=== PATIENT | female | born 1990 | race American Indian/Alaskan Native ===

== ENCOUNTER 2016-09-18 22:41 | Emergency (ER) | payer SELFPAY ==
[2016-09-18 23:54] LABS: Basophils % (Auto) 0.4 % (0.0-1.8); Eosinophils % (Auto) 1.2 % (0.0-4.3); Hematocrit 38.3 % (30.3-42.9); Mean Corpuscular HGB Conc 34 % (30-34); Mean Corpuscular Hemoglobin 32 pg (28-32); Mean Corpuscular Volume 95 fl (79-97); Platelet Count 269 K/mm3 (140-440); Red Blood Count 4.05 M/mm3 (3.65-5.03); Red Cell Distribution Width 12.8 % (13.2-15.2); White Blood Count 6.5 K/mm3 (4.5-11.0)
[2016-09-19 00:09] LABS: Anion Gap 14 mmol/L; BUN/Creatinine Ratio 16.66; Blood Urea Nitrogen 15 mg/dL (7-17); Carbon Dioxide 28 mmol/L (22-30); Chloride 100.4 mmol/L (98-107); Glucose 89 mg/dL (65-100); Potassium 3.9 mmol/L (3.6-5.0); Sodium 138 mmol/L (137-145)
[2016-09-19 00:15] LABS: Urine Drugs of Abuse Note Disclamer
[2016-09-19 00:26] LABS: Bilirubin,Urine NEG (Negative); Blood,Urine NEG (Negative); Ketones,Urine NEG (Negative); Leukocyte Esterase,Urine NEG (Negative); Mucus,Urine FEW /HPF; Nitrite,Urine NEG (Negative); Protein,Urine <15 mg/dL mg/dL (Negative); Urobilinogen,Urine < 2.0 mg/dL (<2.0)
--- NOTE | 2016-09-19 01:31 | Emergency Department Report ---
HPI - General Chief Complaint: Arrhythmia/Palpitations Time Seen by Provider: 09/19/16 01:07 - HPI HPI: This is a 26-year-old -[place] female presents to the emergency department with complaint of shortness of breath, palpitations and some chest discomfort that began around 8:30 PM this evening. The patient has a history of anxiety and panic attacks and thought she was having another one of those so she took her Atarax but did not relieve her discomfort or symptoms. She denies any history of CA, CVA, PE/DVT. Patient does not have a primary care physician here as she currently is living in [place] but is trying to move down here. She denies any tobacco or illicit drug use or abuse. ED Past Medical Hx - Past Medical History Previous Medical History?: Yes Hx Psychiatric Treatment: Yes (anxeity) - Surgical History Past Surgical History?: No - Social History Smoking Status: Never Smoker Substance Use Type: None - Medications Home Medications: Home Medications Medication Instructions Recorded Confirmed Last Taken Type ALPRAZolam [Xanax TAB] 0.5 mg PO BID PRN #12 tab 09/19/16 Unknown Rx ED Review of Systems ROS: Stated complaint: SOB/RAPID HEARTBEAT Other details as noted in HPI Comment: All other systems reviewed and negative Constitutional: denies: chills, fever Eyes: denies: eye pain, eye discharge, vision change ENT: denies: ear pain, throat pain Respiratory: shortness of breath. denies: cough, wheezing Cardiovascular: chest pain, palpitations Gastrointestinal: denies: abdominal pain, nausea, diarrhea Genitourinary: denies: urgency, dysuria, discharge Musculoskeletal: denies: back pain, joint swelling, arthralgia Skin: denies: rash, lesions Neurological: denies: headache, weakness, paresthesias Physical Exam - Physical Exam Vital Signs: Vital Signs 09/18/16 09/19/16 22:49 01:18 Temperature 98.3 F 98.7 F Pulse Rate 81 80 Respiratory 18 16 Rate Blood Pressure 112/78 Blood Pressure 105/66 [Right] O2 Sat by Pulse 98 98 Oximetry Physical Exam: GENERAL: The patient is well-developed well-nourished. HEENT: Normocephalic. Atraumatic. Extraocular motions are intact. Patient has moist mucous membranes. Pupils equal reactive to light bilaterally. NECK: Supple. Trachea is midline. CHEST/LUNGS: Clear to auscultation. There is no respiratory distress noted. HEART/CARDIOVASCULAR: Regular. There is no tachycardia. There is no gallop rub or murmur. ABDOMEN: Abdomen is soft, nontender. Patient has normal bowel sounds. There is no abdominal distention. SKIN: Skin is warm and dry. NEURO: The patient is awake, alert, and oriented. The patient is cooperative. The patient has no focal neurologic deficits. The patient has normal speech. Cranial nerves II through XII grossly intact. MUSCULOSKELETAL: There is no tenderness or deformity. There is no limitation range of motion. There is no evidence of acute injury. ED Course Vital Signs 09/18/16 09/19/16 22:49 01:18 Temperature 98.3 F 98.7 F Pulse Rate 81 80 Respiratory 18 16 Rate Blood Pressure 112/78 Blood Pressure 105/66 [Right] O2 Sat by Pulse 98 98 Oximetry ED Medical Decision Making - Lab Data Result diagrams: 09/18/16 23:19 09/18/16 23:19 - EKG Data -: EKG Interpreted by Me EKG shows normal: sinus rhythm, axis, intervals, QRS complexes, ST-T waves Rate: normal - EKG Data When compared to previous EKG there are: previous EKG unavailable Interpretation: normal EKG - Radiology Data Radiology results: image reviewed interpreted by me: Chest x-ray did not show any acute process. Heart is normal shape and size. No effusions. No pneumothorax. No signs of pneumonia seen. - Medical Decision Making This is a 26-year-old female presents the emergency department with complaint of chest pain, palpitations and shortness of breath. She herself appears to have a high suspicion that it is anxiety induced. She was examined with physical exam, labs, imaging and EKG. EKG does not show any signs of ST elevation CA, ischemia or significant dysrhythmia. Labs are unremarkable including a negative troponin and a negative D-dimer. Chest x-ray does not show any acute process. Vital signs stable throughout his ED course including being afebrile. She has a OSWALDO score of 0. She is low on the heart score criteria. She was given a dose of Xanax and upon reevaluation she says she is feeling better. It is possible that it is still anxiety related. However the patient will be given a referral for cardiology to follow up regarding the chest discomfort and palpitations. She'll be given a small amount of Xanax to be taken instead of the Atarax and a referral for the [facility]. And she will be given a referral for primary care physician. She has been encouraged to return to the emergency department with any worsening of her symptoms or any acute distress. - Differential Diagnosis anxiety/panic, CA, PE, costochondritis Critical Care Time: No Critical care attestation.: If time is entered above; I have spent that time in minutes in the direct care of this critically ill patient, excluding procedure time. ED Disposition Clinical Impression: Anxiety, Palpitations Chest pain Qualifiers: Chest pain type: unspecified Qualified Code(s): R07.9 - Chest pain, unspecified Disposition: - TO HOME OR SELFCARE Is pt being admited?: No Condition: Stable Instructions: Chest Pain (ED), Palpitations (ED), Anxiety (ED) Additional Instructions: Please follow-up with a primary care physician in the next few days. I have given him referral for a local alarm service technician, Dr. Ocasio she would like to follow up regarding your chest discomfort and/or palpitations. I a referral for the [facility] in case he would like to follow up regarding your anxiety and/or panic attacks. Return to the emergency department with any worsening of your symptoms or any acute distress. You've been prescribed a medication that is sedating. Therefore this medication cannot be mixed with alcohol, or taken prior to driving, working, or being responsible for children. If you choose to use the Xanax for your anxiety, do not take it with the Atarax. Prescriptions: ALPRAZolam [Xanax TAB] 0.5 mg PO BID PRN #12 tab PRN Reason: Anxiety Referrals: TITO VELIZ MD [Primary Care Provider] - 3-5 Days RU LEONARDO MD [Staff Physician] - 3-5 Days CELESTE OCASIO MD [Staff Physician] - 3-5 Days [facility] [Outside] - 3-5 Days [facility] [Outside] - 3-5 Days Time of Disposition: 04:02
[2016-09-19] MEDS ORDERED: XANAX PO ONE (03:10)
[2016-09-19 04:32] VITALS: BP 95/63
--- NOTE | 2016-09-19 07:40 | XRay Report ---
AP CHEST: HISTORY: chest pain AP view of the chest demonstrates a normal mediastinal and cardiac contour with clear lungs and normal bony and soft tissue structures. IMPRESSION: Unremarkable AP chest.
== END 2016-09-19 04:30 | disposition home or self-care (01) ==
LOC: ED 22:41
DX: F41.9 Anxiety disorder, unspecified (principal); R00.2 Palpitations; R07.89 Other chest pain
CPT/HCPCS: 36415; 71010; 80048; 80307; 81001; 81025; 84443; 84484; 85025; 85379; 93005; 93010; 99285; G0480; 80320